=== PATIENT | male | born 1935 | race Caucasian/White ===

== ENCOUNTER 2017-03-23 15:36 | Inpatient (IN) | payer MEDICARE, MEDICAID ==
[~2017-03-23] VITALS: Ht 180.3 cm; Wt 81.6 kg
--- NOTE | ~2017-03-23 | PR ---
[place], [place] PROGRESS NOTE NAME: TRACY HARRISON UNIT #: [id number] ROOM: 315 DOCTOR: FELISA URBINA MD BIRTHDATE: [birth year] DOS: 03/28/2017 CHIEF COMPLAINT: "Hey Dr. Urbina I ate my breakfast including my yogurt." SUMMARY OF THE VISIT: The patient was interviewed in the dining area. He engaged readily in superficial break conversation intended to minimize behaviors. Nurse's report, however, he continues to be very sexually preoccupied and in fact, this morning, he yelled out to them to come into his room and upon entering his room, he was naked, laid sprawled on his bed, stating that he came into this world naked and he will remain naked from there on in, so that people can see his glory. He did redirect with some difficulty. He continues to be very labile at times and very inappropriate. MENTAL STATUS: He is alert and oriented to person, place, but not necessarily to time. Mood does still seem to be labile. Affect at times is inappropriate. He shifts from topic to topic rather rapidly. He remains grossly delusional. Short term memory is poor. PLAN: Although he was loaded with the Aristada yesterday, it still take several days to weeks for that blood level to sustain given his gross psychosis and mood debility. I will increase his oral dose of Abilify from 15 to 30 mg at bedtime. I will also maximize the dose of the Exelon patch from 9.5 to 13.3 mg a day to impact positively on ADL maintenance, behavior and cognition. We will continue to engage in individual and mckeon milieu activity, returning to the least restrictive environment when psychiatrically stable. FELISA URBINA MD CM:[id number] FELISA URBINA MD 03/28/17 1056 interface
--- NOTE | ~2017-03-23 | PR ---
[place], [place] PROGRESS NOTE NAME: TRACY HARRISON [facility] #: [id number] UNIT #: [id number] ROOM: 315 DOCTOR: FELISA STANLEY MD BIRTHDATE: [birth year] DOS: 03/27/2017 CHIEF COMPLAINT: "No, I do not want those injections, they contain poison that give you cancer." SUMMARY OF THE VISIT: The patient was interviewed first in his room as he rested in bed. He engaged readily in conversation, then later I re-interviewed him as he was sitting, eating his breakfast. Both times, he presents as grossly psychotic and delusional. There is significant paranoia present. He was pleasant towards me and states that he likes it here, especially the food and would prefer to stay here rather than go back to see ____. He was pleasant, but grossly delusional. I was not able to reason with him. I attempted to educate him on the need for the injection and held this, but ultimately replace the need for oral medications, but he tied this into his delusions, stating that the shots and any kind of shot is full poison and that all shots cause cancer. Given the fact that he is grossly delusional, psychotic, and has been so sexually inappropriate towards female patients and staff, I fear that he is putting both himself and others at substantial risk. At this point, we will be forced to force the injection of both the Depo-Provera and the Aristada. This should be a limited restraint and it is for both his good and good of the mckeon milieu. MENTAL STATUS: He is alert and oriented to self, place, approximate to time. Mood is still labile. Affect is still inappropriate. He is grossly delusional and psychotic. His grasp of reality is limited. Short term memory has gaps, otherwise he is intact. PLAN: As mentioned above, I am going to go ahead and briefly restrain him in order to give him both the Depo-Provera 150 mg IM and the Aristada 441 mg IM. We will need to maintain the Abilify as it takes approximately 2 weeks for the Aristada to reach meaningful blood levels. Meanwhile, I will increase his Exelon patch from 4.6 to 9.5 mg daily in an order to maximize potential benefit. We will continue to engage him in individual and mckeon milieu activity with the ultimate plan to return to the least restrictive environment when psychiatrically stable. [place], [place] PROGRESS NOTE NAME: TRACY HARRISON UNIT #: [id number] ROOM: [facility] DOCTOR: FELISA STANLEY MD BIRTHDATE: [birth year] FELISA STANLEY MD CM:[id number] FELISA STANLEY MD 03/27/17 1017 interface
--- NOTE | ~2017-03-23 | DS ---
[place], [place] DISCHARGE SUMMARY NAME: TRACY HARRISON [facility] #: [id number] UNIT #: [id number] ROOM: 315 DOCTOR: SHAE ALONZO BIRTHDATE: [birth year] DOS: 04/01/2017 CHIEF COMPLAINT: "Today, I am going to [place]". HISTORY OF PRESENT ILLNESS: He is an 81-year-old white male who was [facility] from [facility] where he had increasing agitation and sexually inappropriate behavior. He was exposing himself and grabbing staff members there at the longterm. Any attempts to redirect him, he became more agitated and threatening. According to him, he just did not get along well with management and nursing and so he was sent here to the Behavioral Health Unit for medication adjustment and milieu therapy. PAST MEDICAL HISTORY: Anxiety, arthritis, coronary artery disease, chronic kidney disease, COPD, dementia, GERD. He does have a history of alcohol abuse, hyperlipidemia, hypertension, hypothyroidism, schizophrenia, and urinary incontinence. SUMMARY OF HOSPITAL COURSE: He was admitted to the Behavioral Health Unit. It was found that his vitamin D level was low. He was put on replacement therapy for that. His TSH was elevated on admission and now was addressed by the medical staff. He received a Depo-Provera shot and also Celexa to decrease the sexual acting out behavior. He was started on Aristada injections, which he will continue to get once a month and his Abilify and Exelon patch were continued and titrated during this stay. Initially when on the unit, he continued to have the same sexually inappropriate behavior, exposing himself, making inappropriate comments and includes comments to the staff. Presently, he has not had any sexually inappropriate behaviors as far as sign, touch anyone. He is still make some comments, but they are very few and far between and he is not physically trying to do anything nor has he exposed himself over the past 3 days. MENTAL STATUS AT DISCHARGE: He is alert, oriented, pleasant, and talkative. He knows that he is going to a new facility and he seems to be happy about that. His mood and affect are appropriate and as I said, everyone ____ still making inappropriate comments, but he is very much redirectable now. DIAGNOSIS: Brief psychotic disorder. DISPOSITION: He will be discharged back to a long-term care facility in [place]. His scripts have been printed and they will be sent with him to the long-term care. He is discharged in psychiatrically stable condition. The resident and will be discharged today. His paper work did come through for the long-term care facility. His scripts are being sent with him to the long-term care facility and he is discharged psychologically in stable condition. [place], [place] DISCHARGE SUMMARY NAME: HARRISONNEENAGIUSEPPE Santos UNIT #: [id number] ROOM: [facility] DOCTOR: SHAE ALONZO BIRTHDATE: [birth year] Shae Alonzo NP CM:SHELL [id number] SHAE ALONZO 04/02/17 1443 interface
[2017-03-23] MEDS ORDERED: AMBIEN10 M1 PO (16:01)
[2017-03-23] MEDS ORDERED: DEPAKOTE ER500 MG PO (16:02)
[2017-03-23] MEDS ORDERED: DEPAKOTE250 MG PO (16:12)
[2017-03-23] MEDS ORDERED: KLOR-CON 1010 ME1 PO (16:14)
[2017-03-23] MEDS ORDERED: MULTI VITAMINS1 TAB PO (16:15)
[2017-03-23] MEDS ORDERED: DITROPAN XL5 MG PO (16:16)
[2017-03-23] MEDS ORDERED: Synthroid,Lev200 MCG PO (16:18)
[2017-03-23] MEDS ORDERED: ZOCOR20 MG PO (16:23)
[2017-03-23] MEDS ORDERED: DOK100 M1 PO (16:27)
[2017-03-23] MEDS ORDERED: IBUPROFEN400 MG PO (16:28)
[2017-03-23] MEDS ORDERED: ZYPREXA10 M1 PO (16:33)
[2017-03-23] MEDS ORDERED: CIMETIDINE400 M1 PO (16:37)
[2017-03-23 18:14] VITALS: BP 118/77
[2017-03-23 18:15] VITALS: BP 118/77
[2017-03-23 20:44] VITALS: BP 113/73
[2017-03-24 08:00] VITALS: BP 146/80
[2017-03-24 10:30] LABS: BASO # 0.1 10*3/uL (0.0-0.1); BASO % 0.6 % (0.0-1.0); EOS # 0.1 10*3/uL (0.0-0.4); EOS % 1.7 % (1.0-4.0); HEMATOCRIT 39.7 % (42.0-52.0); HEMOGLOBIN 13.2 g/dl (14.0-18.0); LYMPH # 1.1 10*3/uL (1.3-4.4); LYMPH % 13.8 % (27.0-41.0); MEAN CELL VOLUME 99.5 fl (80.0-94.0); MEAN CORPUSCULAR HGB 33.1 pg (27.0-31.0); MEAN CORPUSCULAR HGB CONC 33.2 g/dl (33.0-37.0); MEAN PLATELET VOLUME 10.1 fl (9.6-12.3); MONO # 0.8 10*3/uL (0.1-1.0); MONO % 9.9 % (3.0-9.0); NEUT % 73.8 % (47.0-73.0); PLATELET COUNT AUTOMATED 314 10*3/uL (130-400); RED BLOOD COUNT 3.99 10*6/uL (4.50-5.90); RED CELL DISTRI WIDTH 13.5 % (0-14.5); WHITE BLOOD COUNT 8.1 10*3/uL (4.8-10.8)
[2017-03-24 10:59] LABS: ALBUMIN 3.1 gm/dl (3.1-4.5); BILIRUBIN, TOTAL 0.2 mg/dl (0.2-1.0); BUN 14 mg/dl (7-24); CARBON DIOXIDE 30 mmol/L (21-32); CHLORIDE 103 mmol/L (98-107); CHOLESTEROL 167 mg/dL (<200); EST GLOM FILT AFRICAN AMERICAN > 60 ml/min; GLUCOSE 71 mg/dL (65-99); SGOT/AST 13 IU/L (3-35); SGPT/ALT 14 U/L (12-78); SODIUM 138 mmol/L (136-145); TOTAL PROTEIN 7.3 gm/dL (6.4-8.2); TRIGLYCERIDES 159 mg/dl (<150); VLDL CHOLESTEROL 32 mg/dL (6-40)
[2017-03-24 11:06] LABS: ALKALINE PHOSPHATASE 69 U/L (45-117); HDL CHOLESTEROL 50 mg/dl (40-60); LDL CHOLESTEROL 85 mg/dL (9-159)
[2017-03-24 12:21] LABS: FOLIC ACID 20.9 ng/mL (>5.38)
[2017-03-24 13:50] LABS: BILIRUBIN NEGATIVE (NEGATIVE); BLOOD NEGATIVE (NEGATIVE); CLARITY CLEAR (CLEAR); COLOR YELLOW (YELLOW); GLUCOSE NEGATIVE (NEGATIVE); KETONE NEGATIVE (NEGATIVE); LEUKO ESTERASE NEGATIVE (NEGATIVE); NITRITE NEGATIVE (NEGATIVE); PROTEIN NEGATIVE (NEGATIVE); UROBILINOGEN 0.2 E.U./dl (0.2-1.0)
[2017-03-24 14:21] LABS: BACTERIA 1+; EPITHELIAL CELLS 0-2; RBC 0-2 rbc/hpf (0-2); URINE REFLEX COMMENT NO (NO)
[2017-03-24 20:09] VITALS: BP 134/80
[2017-03-25 07:55] LABS: BASO % 0.4 % (0.0-1.0); EOS # 0.2 10*3/uL (0.0-0.4); EOS % 2.5 % (1.0-4.0); HEMATOCRIT 39.9 % (42.0-52.0); HEMOGLOBIN 13.2 g/dl (14.0-18.0); LYMPH # 1.3 10*3/uL (1.3-4.4); LYMPH % 18.3 % (27.0-41.0); MEAN CELL VOLUME 98.8 fl (80.0-94.0); MEAN CORPUSCULAR HGB 32.7 pg (27.0-31.0); MEAN CORPUSCULAR HGB CONC 33.1 g/dl (33.0-37.0); MEAN PLATELET VOLUME 10.2 fl (9.6-12.3); MONO # 0.7 10*3/uL (0.1-1.0); MONO % 10.2 % (3.0-9.0); NEUT % 68.3 % (47.0-73.0); PLATELET COUNT AUTOMATED 304 10*3/uL (130-400); RED BLOOD COUNT 4.04 10*6/uL (4.50-5.90); RED CELL DISTRI WIDTH 13.4 % (0-14.5); WHITE BLOOD COUNT 7.3 10*3/uL (4.8-10.8)
[2017-03-25 08:05] VITALS: BP 109/67
[2017-03-25 08:21] LABS: BUN 17 mg/dl (7-24); CARBON DIOXIDE 28 mmol/L (21-32); CHLORIDE 104 mmol/L (98-107); EST GLOM FILT AFRICAN AMERICAN > 60 ml/min; GLUCOSE 100 mg/dL (65-99); POTASSIUM 4.3 mmol/L (3.5-5.1); SODIUM 138 mmol/L (136-145)
[2017-03-25 19:41] VITALS: BP 142/83
[2017-03-26 08:09] VITALS: BP 134/81
[2017-03-26 20:00] VITALS: BP 121/78
[2017-03-27 07:48] VITALS: BP 122/69
[2017-03-27 19:52] VITALS: BP 108/68
[2017-03-28 07:49] VITALS: BP 113/74
[2017-03-28 20:14] VITALS: BP 118/60
[2017-03-29 08:11] VITALS: BP 115/71
[2017-03-29 20:00] VITALS: BP 107/59
[2017-03-30 08:09] VITALS: BP 108/61
[2017-03-30 20:21] VITALS: BP 123/70
[2017-03-31 11:01] VITALS: BP 113/54
[2017-03-31 20:21] VITALS: BP 144/78
[2017-04-01 07:57] VITALS: BP 103/59
[2017-04-01] MEDS ORDERED: EXELON13.3 MG/21 T (09:23)
[2017-04-01] MEDS ORDERED: ARIPIPRAZOLE15 MG PO (09:23)
[2017-04-01] MEDS ORDERED: ARISTADA441 MG/1.6 IM (09:23)
[2017-04-01] MEDS ORDERED: CITALOPRAM HYDR20 MG PO (09:23)
[2017-04-01 20:22] VITALS: BP 104/59
[2017-04-02 08:14] VITALS: BP 130/64
== END 2017-04-02 10:25 | DRG 885 ==
LOC: 3N 15:36
PROVIDERS: Internal Medicine; Psychiatry & Neurology Psychiatry
DX: F23 Brief psychotic disorder (principal); F03.91 Unspecified dementia, unspecified severity, with behavioral disturbance; J44.9 Chronic obstructive pulmonary disease, unspecified; F41.9 Anxiety disorder, unspecified; E78.5 Hyperlipidemia, unspecified; E03.9 Hypothyroidism, unspecified; K21.9 Gastro-esophageal reflux disease without esophagitis; M19.90 Unspecified osteoarthritis, unspecified site; N18.9 Chronic kidney disease, unspecified; I25.10 Atherosclerotic heart disease of native coronary artery without angina pectoris; I12.9 Hypertensive chronic kidney disease with stage 1 through stage 4 chronic kidney disease, or unspecified chronic kidney disease; R32 Unspecified urinary incontinence; Z72.0 Tobacco use; Z72.89 Other problems related to lifestyle; Z88.8 Allergy status to other drugs, medicaments and biological substances; Z79.899 Other long term (current) drug therapy; Z91.14 Patient's other noncompliance with medication regimen